=== PATIENT | female | born 1970 | race Two or more races ===

== ENCOUNTER → 2024-07-06 | Outpatient (CLI) | payer BC ==
[2024-07-06 14:50] LABS: Basophils # (auto) 0 10 ^3/uL (0-0.2); Basophils % (auto) 0.5 % (0.0-2.0); Eosinophils # (auto) 0.5 10 ^3/uL (0-0.8); Eosinophils % (auto) 6.6 % (0.0-7.0); Hematocrit 40.4 % (36.0-46.0); Hemoglobin 14.4 g/dL (12.2-16.2); Lymphocytes # (auto) 1.7 10 ^3/uL (0.4-5.4); Lymphocytes % (auto) 23.4 % (10.0-50.0); Mean Corpuscular Hemoglobin 30.7 pg (28.0-32.0); Mean Corpuscular Hgb Conc. 35.7 g/dL (32.0-36.0); Mean Corpuscular Volume 86.1 fL (80.0-100.0); Monocytes # (auto) 0.5 10 ^3/uL (0-1.3); Monocytes % (auto) 6.7 % (0.0-12.0); Neutrophils # (auto) 4.5 10 ^3/uL (1.6-8.6); Neutrophils % (auto) 62.8 % (37.0-80.0); Platelet Count (auto) 315 10^3/uL (140-450); Red Blood Cells 4.69 10^6/uL (4.0-5.20); Red Cell Distribution Width 14.2 % (11.8-14.3); White Blood Cell 7.2 10^3/uL (4.4-10.8)
[2024-07-06 15:30] LABS: Alanine Aminotransferase 46 U/L (7-40); Alkaline Phosphatase 134 U/L (46-116); Anion Gap 10 (5-15); Aspartate Aminotransferase 16 U/L (13-40); BUN/Creatinine Ratio 11.5 (10.0-20.0); Blood Urea Nitrogen 10 mg/dL (9-23); CRP High Sensitivity 0.26 mg/dL (<1.0); Calcium 9.1 mg/dL (8.7-10.4); Carbon Dioxide 26 mmol/L (20-31); Chloride 107 mmol/L (98-107); Glucose 134 mg/dL (74-106); Potassium 4.2 mmol/L (3.5-5.1); Sodium 143 mmol/L (136-145)
[2024-07-06 15:31] LABS: Albumin 4.5 g/dL (3.2-4.8); Bilirubin, Total 0.8 mg/dL (0.2-1.0); Total Protein 7.1 g/dL (5.7-8.2)
[2024-07-06 15:35] LABS: Follicle Stimulating Hormone 89.85 IU/L (SEE BELOW)
== END | disposition home or self-care (01) ==
LOC: LAB 14:32
PROVIDERS: ATTEND Obstetrics & Gynecology
DX: N95.1 Menopausal and female climacteric states (principal); R53.83 Other fatigue
CPT/HCPCS: 36415; 80053; 82306; 82670; 83001; 83002; 84403; 84443; 85025; 86141

== ENCOUNTER → 2024-11-05 | Outpatient (CLI) | payer BC | END | disposition home or self-care (01) | LOC: LAB 14:05 | PROVIDERS: ATTEND Student in an Organized Health Care Education/Training Program | DX: Z12.11 Encounter for screening for malignant neoplasm of colon (principal); R73.9 Hyperglycemia, unspecified; R03.0 Elevated blood-pressure reading, without diagnosis of hypertension; M25.50 Pain in unspecified joint | CPT/HCPCS: 82274 ==